=== PATIENT | male | born 1970 | race Caucasian/White ===

== ENCOUNTER → 2018-10-20 | Outpatient (CLI) | payer OTHER ==
--- NOTE | 2018-10-20 17:47 | Diagnostic Imaging Report ---
INDICATION: Followup left shoulder fracture. TIME OF EXAM: 1:44 p.m. FINDINGS: The glenohumeral and acromioclavicular alignment is normal. Acromiohumeral space is normal. There is some sclerosis along the inferior glenoid, perhaps owing to healing fracture. No displaced fracture is seen. IMPRESSION: No acute fracture is seen. There is some sclerosis along the inferior glenoid, perhaps owing to a healed fracture. Dictated by: Dictated on workstation # [id number]
--- NOTE | 2018-10-20 19:09 | Diagnostic Imaging Report ---
INDICATION: Glenoid fracture. TIME OF EXAM: 2:21 PM Axillary views were performed. Glenohumeral alignment is normal. Impression: Normal glenohumeral alignment. Dictated by: Dictated on workstation # [id number]
== END ==
LOC: RAD FS 13:38
PROVIDERS: ATTEND Nurse Practitioner
DX: S42.142D Displaced fracture of glenoid cavity of scapula, left shoulder, subsequent encounter for fracture with routine healing (principal); S43.492A Other sprain of left shoulder joint, initial encounter
CPT/HCPCS: 73020; 73030